=== PATIENT | male | born 1995 | race American Indian/Alaskan Native ===

== ENCOUNTER 2021-12-27 22:17 | Emergency (ER) | payer OTHER, SELFPAY ==
--- NOTE | ~2021-12-27 | XR_ITS ---
EXAMINATION: XR chest 2V 12/27/2021 23:16 INDICATION: Chest pain PROCEDURE: 2 view chest COMPARISON: No prior studies for comparison. FINDINGS: The lungs are clear. The cardiomediastinal silhouette is within normal limits. There are no pleural effusions. There is no pneumothorax suspected. IMPRESSION: 1: NO ACUTE CARDIOPULMONARY DISEASE. Reviewed, dictated and finalized at location A.
--- NOTE | 2021-12-27 22:20 | ECG_ITS ---
Measurements Intervals [place] Rate: 67 P: 39 UT: 173 QRS: -1 QRSD: 118 T: 10 QT: 392 QTc: 416 Interpretive Statements SINUS RHYTHM WITH SINUS ARRHYTHMIA MODERATE INTRAVENTRICULAR CONDUCTION DELAY [110+ ms QRS DURATION] BORDERLINE ECG NO PREVIOUS ECG AVAILABLE FOR COMPARISON Electronically Signed On 12-28-2021 17:41:04 CDT by Milad Ortez M.D.
[2021-12-27 22:33] VITALS: BP 143/85; PULSE 77; RESP 20; TEMP 36.1; O2SAT 100
[2021-12-27 22:49] LABS: Basophils Absolute Auto 0.1 K/mm3 (0.0-0.1); Basophils Percent Auto 0.7 % (0.2-1.2); Eosinophils Absolute Auto 0.4 K/mm3 (0-0.3); Eosinophils Percent Auto 5.4 % (0-4.4); Hematocrit 43.3 % (42.0-52.0); Immature Granulocyte Absolute 0.03 K/mm3 (0.00-0.031); Immature Granulocyte Percent A 0.4 % (0-0.5); Lymphocytes Absolute Auto 2.91 K/mm3 (0.9-3.2); Lymphocytes Percent Auto 40.6 % (18.3-44.2); Mean Corpuscular HGB Conc 32.3 g/dl (32-36); Mean Corpuscular Hemoglobin 30.8 pg (26-34); Mean Corpuscular Volume 95.2 fl (80-100); Mean Platelet Volume 10.7 fl (7.4-10.4); Monocytes Percent Auto 13.4 % (2.6-8.5); Neutrophils Absolute Auto 2.8 K/mm3 (1.3-6.7); Neutrophils Percent Auto 39.5 % (45.5-73.1); Platelet Count Result 295 k/mm3 (150-375); Red Blood Count 4.55 M/mm3 (4.6-6.20); Red Cell Distribution Width 12.3 % (11.5-14.5); White Blood Count 7.2 K/mm3 (4.5-10.0)
[2021-12-27 23:03] LABS: Partial Thromboplastin Time 25.6 SECONDS (22.3-36.8)
[2021-12-27 23:05] LABS: Alanine Aminotransferase 36 U/L (6-50); Albumin Level 4.8 g/dL (3.5-5.1); Alkaline Phosphatase 60 U/L (38-126); Anion Gap 9 mmol/L (8-16); Aspartate Amino Transferase 34 U/L (17-59); Bilirubin,Total 0.4 mg/dL (0.2-1.3); Blood Urea Nitrogen 11 mg/dL (9-20); Carbon Dioxide 27 mmol/L (22-30); Chloride 101 mmol/L (98-107); Estimated CRCL calculation 118 ml/min; Estimated Glomerular Filt Rate > 60; Glucose 88 mg/dL (65-110); Lipase 116 U/L (23-300); Sodium 137 mmol/L (137-145)
[2021-12-27 23:17] LABS: Troponin I < 0.012 ng/mL (0.000-0.034)
--- NOTE | 2021-12-28 01:16 | ED.CHESTPAIN ---
HPI - Chest Pain General Chief Complaint: Chest Pain Stated Complaint: chest pain Time Seen by Provider: 12/28/21 00:59 Source: patient Mode of arrival: ambulatory Limitations: no limitations History of Present Illness HPI narrative: This is a 26 year old male that presents to the ER for chest pain present since last night. Reports the pain started around 6pm while he was at the grocery store. It has been a dull ache in the left chest. It has largely subsided since onset and is now very mild. Denies any other associated symptoms. Denies fever, shortness of breath, or lower extremity edema. Related Data Allergies Allergy/AdvReac Type Severity Reaction Status Date / Time No Known Allergies Allergy Verified 12/28/21 02:20 Review of Systems Review of Systems: CONSTITUTIONAL: Denies fever, CARDIOVASCULAR: Reports chest pain. Denies palpitations, or edema. RESPIRATORY: Denies cough or dyspnea. All systems reviewed & are unremarkable except as noted in HPI and below PMFSH Past Medical History Medical History (Updated 12/28/21 @ 02:21 by Ofelia Maynard PA-C) No active medical problems Social History Social History (Updated 12/28/21 @ 01:18 by Ofelia Maynard PA-C) Smoking status: Never smoker Exam Narrative: GENERAL: Well-appearing, well-nourished, and in no acute distress. HEAD: Normocephalic, atraumatic. EYES: EOMI. CHEST: Clear to auscultation. No respiratory distress. No wheezes rales or rhonchi HEART: Regular rate and rhythm. No murmur heard. Normal peripheral pulses. EXTREMITIES: Normal range of motion. No edema. SKIN: Warm, dry, no rash. NEURO: No focal deficits. Alert and oriented x3. PSYCH: Normal mood and affect Course Vital Signs Vital signs: Vital Signs Temperature 97 F L 12/27/21 22:33 Pulse Rate 77 12/27/21 22:33 Respiratory Rate 20 12/27/21 22:33 Blood Pressure 143/85 H 12/27/21 22:33 Pulse Oximetry 100 12/27/21 22:33 Oxygen Delivery Room Air 12/27/21 22:33 Temperature 97 F L 12/27/21 22:33 Pulse Rate 67 12/28/21 01:46 Respiratory Rate 18 12/28/21 01:46 Blood Pressure 132/93 H 12/28/21 01:46 Pulse Oximetry 99 12/28/21 01:47 Oxygen Delivery Room Air 12/28/21 01:47 MDM - Chest Pain MDM Narrative Medical decision making narrative: Patient presents to the emergency department for chest pain ongoing tonight. He is afebrile and nontoxic-appearing. His vitals are stable. CBC and metabolic panel without concerning findings. Lipase is normal. EKG without concerning changes and baseline at 3-hour troponin are negative. Chest x-ray without acute findings. Patient was updated on case findings. He is stable and felt appropriate for further outpatient evaluation. Instructed to follow-up with primary doctor. He was given warnings to return to the ER Lab Data Attestation: I reviewed the patient's lab results. Result diagrams: 12/27/21 22:32 12/27/21 22:32 Labs: Lab Results 12/27/21 12/27/21 12/27/21 Range/Units 22:32 22:32 22:32 WBC 7.2 (4.5-10.0) K/mm3 RBC 4.55 L (4.6-6.20) M/mm3 Hgb 14.0 (14.0-18.0) g/dL Hct 43.3 (42.0-52.0) % MCV 95.2 (80-100) fl MCH 30.8 (26-34) pg MCHC 32.3 (32-36) g/dl RDW 12.3 (11.5-14.5) % Plt Count 295 (150-375) k/mm3 MPV 10.7 H (7.4-10.4) fl Immature Gran % (Auto) 0.4 (0-0.5) % Neut % (Auto) 39.5 L (45.5-73.1) % Lymph % (Auto) 40.6 (18.3-44.2) % [place] % (Auto) 13.4 H (2.6-8.5) % Eos % (Auto) 5.4 H (0-4.4) % Baso % (Auto) 0.7 (0.2-1.2) % Lymph # (Auto) 2.91 (0.9-3.2) K/mm3 [place] # (Auto) 1.0 H (0.1-0.6) K/mm3 Eos # (Auto) 0.4 H (0-0.3) K/mm3 Baso # (Auto) 0.1 (0.0-0.1) K/mm3 Abs Immat Gran (auto) 0.03 (0.00-0.031) K/mm3 Absolute Neuts (auto) 2.8 (1.3-6.7) K/mm3 Absolute Nucleated RBC 0.0 (0.0-0.012) K/mm3 Nucleated RBC % 0.0 (0.0-0.2) % PT 13.0 (11.1-14.7) [place]
[2021-12-28] MEDS: KETOROLAC 15 MG/ML VIAL (*BKC) IV PUSH (01:45)
[2021-12-28] MEDS: PANTOPRAZOLE SODIUM IV 40 MG VIAL IV PUSH (01:45)
[2021-12-28 01:46] VITALS: BP 132/93; PULSE 67; RESP 18; O2SAT 99
[2021-12-28 01:47] VITALS: O2SAT 99
[2021-12-28 02:10] LABS: Troponin I < 0.012 ng/mL (0.000-0.034)
[2021-12-28 02:34] VITALS: BP 114/85; PULSE 76; RESP 18; O2SAT 100
== END 2021-12-28 02:30 | disposition home or self-care (01) ==
PROVIDERS: Emergency Provider Emergency Medicine
DX: R07.9 Chest pain, unspecified (principal); I45.9 Conduction disorder, unspecified
CPT/HCPCS: 36415; 71046; 80053; 83690; 84484; 85025; 85610; 85730; 93005; 96374; 96375; 99284; C9113; J1885